=== PATIENT | female | born 1965 | race Caucasian/White ===

== ENCOUNTER 2018-03-08 16:26 | Emergency (ER) | payer OTHER ==
[~2018-03-08] VITALS: Ht 157.5 cm; Wt 82.5 kg
[2018-03-08 16:51] VITALS: Ht 157.5 cm; Wt 82.5 kg
[2018-03-08 17:50] VITALS: BP 130/78
== END 2018-03-08 17:50 | disposition home or self-care (01) ==
LOC: ED 16:26
DX: S39.012A Strain of muscle, fascia and tendon of lower back, initial encounter (principal); I10 Essential (primary) hypertension; V49.9XXA Car occupant (driver) (passenger) injured in unspecified traffic accident, initial encounter; Y93.I9 Activity, other involving external motion; Y92.488 Other paved roadways as the place of occurrence of the external cause; Y99.8 Other external cause status
CPT/HCPCS: J1885